=== PATIENT | male | born 1950 | race Caucasian/White ===

== ENCOUNTER 2018-05-25 07:58 | Day surgery (SDC) | payer MEDICARE, BC ==
[~2018-05-25] VITALS: Ht 180.3 cm; Wt 74.8 kg
[~2018-05-25 07:58] MED LIST: LISINOPRIL10 M1 PO; PRILOSEC OTC20 MG PO
[2018-05-25 09:52] VITALS: BP 139/79
== END 2018-05-25 09:58 | disposition home or self-care (01) ==
LOC: ENDO 07:58 → ORM 11:45
PROVIDERS: ATTEND Surgery
PROC: 0DJD8ZZ Inspection of Lower Intestinal Tract, Via Natural or Artificial Opening Endoscopic (ICD-10-PCS; principal; 2018-05-25)
PROC: 0DB48ZX Excision of Esophagogastric Junction, Via Natural or Artificial Opening Endoscopic, Diagnostic (ICD-10-PCS; 2018-05-25)
DX: Z12.11 Encounter for screening for malignant neoplasm of colon (principal); K21.0 Gastro-esophageal reflux disease with esophagitis; K44.9 Diaphragmatic hernia without obstruction or gangrene; Q40.2 Other specified congenital malformations of stomach; Z79.899 Other long term (current) drug therapy

== ENCOUNTER 2019-05-15 12:49 | Emergency (ER) | payer MEDICARE, BC ==
[~2019-05-15] VITALS: Ht 180.3 cm; Wt 75.0 kg
[2019-05-15] MEDS ORDERED: ORPHENADRINE100 MG PO (14:00)
[2019-05-15] MEDS ORDERED: MEDDOSEPAK PO (14:00)
[2019-05-15 14:08] VITALS: BP 155/75
== END 2019-05-15 14:17 | disposition home or self-care (01) ==
LOC: ED 12:49
DX: M54.42 Lumbago with sciatica, left side (principal); I10 Essential (primary) hypertension

== ENCOUNTER 2021-12-30 17:03 | Emergency (ER) | payer MEDICARE ==
[2021-12-30] VITALS (8 sets, daily range): BP systolic 159–185; BP diastolic 75–119
[~2021-12-30] VITALS: Ht 180.3 cm; Wt 83.0 kg
[~2021-12-30 17:03] MED LIST changes: +MEDDOSEPAK PO; +ORPHENADRINE100 MG PO
[2021-12-30 17:40] LABS: HEMATOCRIT 39.1 % (39.0-50.0); HEMOGLOBIN 13.3 g/dl (14.0-18.0); IMMATURE GRANULOCYTES 0.3 % (0.0-5.0); MEAN CELL VOLUME 93.3 fL CALC (80.0-100.0); MEAN CORPUSCULAR HGB 31.7 pG CALC (26.0-32.0); NEUT# 4.51 thou/uL (1.82-7.42); RED BLOOD COUNT 4.19 mill/uL (4.70-6.10); RED CELL DISTRI WIDTH 12.7 % (11.5-15.5)
[2021-12-30 17:54] LABS: PROTHROMBIN TIME 10.3 SECONDS (9.0-12.5)
[2021-12-30 17:55] LABS: ALBUMIN 4.5 g/dL (3.2-5.0); ALKALINE PHOSPHATASE 62 u/l (38-126); ANION GAP 14 (6-22 (CALC)); BILIRUBIN, TOTAL 0.4 mg/dL (0.0-1.4); BUN 14 mg/dL (8-23); BUN/CREATININE RATIO 15 (12-20 (CALC)); CARBON DIOXIDE 28 mmol/l (22-30); CHLORIDE 100 mmol/l (95-108); CREATININE 0.9 mg/dL (0.7-1.3); GFR FOR AFR.AMER. > 60 ML/MIN (>=60 (CALC)); GFR OTHER RACES > 60 ML/MIN (>=60 (CALC)); SGOT/AST 59 u/l (19-48); SODIUM 138 mmol/l (137-146); TOTAL PROTEIN 7.5 g/dL (6.3-8.2)
[2021-12-30 18:02] LABS: POTASSIUM 3.5 mmol/l (3.5-5.1)
[2021-12-30] MEDS ORDERED: METFORMIN500 M2 PO (18:37)
[2021-12-30 19:27] LABS: URINE BILIRUBIN - DIPSTICK NEGATIVE (NEGATIVE); URINE BLOOD DIPSTICK TRACE-INTACT (NEGATIVE); URINE COLOR YELLOW; URINE GLUCOSE - DIPSTICK NEGATIVE (NEGATIVE); URINE KETONE NEGATIVE (NEGATIVE); URINE LEUK ESTERASE NEGATIVE (NEGATIVE); URINE PH 5.5 (4.5-8.0); URINE PROTEIN - DIPSTICK NEGATIVE (NEG-TRACE); URINE SPECIFIC GRAVITY <=1.005; URINE UROBILINOGEN - DIPSTICK 0.2 E.U./dL (0.2)
[2021-12-30 19:28] LABS: URINE NITRITE - DIPSTICK NEGATIVE (Negative)
== END 2021-12-30 20:25 | disposition short-term general hospital (02) ==
LOC: ED 17:03
PROVIDERS: Emergency Medicine
DX: G93.89 Other specified disorders of brain (principal); I10 Essential (primary) hypertension; K21.9 Gastro-esophageal reflux disease without esophagitis
CPT/HCPCS: Q3014; Q9967